=== PATIENT | female | born 1955 ===

== ENCOUNTER 2023-11-28 10:45 | Inpatient (IN) | payer OTHER ==
[~2023-11-28] VITALS: Ht 152.4 cm; Wt 51.7 kg
[2023-11-28] MEDS ORDERED: HORIZANT300 MG PO (11:24)
[2023-11-28] MEDS ORDERED: EZALLOR SPRINKL10 MG PO (11:25)
[2023-11-28] MEDS ORDERED: FOSAMAX70 MG PO (11:25)
[2023-11-28] MEDS ORDERED: SYNTHROID100 MCG PO (11:25)
[2023-11-28 12:05] VITALS: BP 115/72
[2023-12-04] MEDS ORDERED: NIFEDIPINE ER30 M1 (11:23)
[2023-12-04] MEDS ORDERED: GABAPENTIN300 M2 (11:24)
[2023-12-04] MEDS ORDERED: CICLOPIROX6.6 ML (11:24)
[2023-12-04] MEDS ORDERED: levoFLOXacin IN DEXTROSE 5 % 500MG/100ML PIGGYBAG IV ONE (13:30)
[2023-12-04] MEDS ORDERED: METRONIDAZOLE/SODIUM CHLORIDE 5 MG/ML ML IV ONE (13:45)
[2023-12-04] MEDS ORDERED: OxyCODONE HCL 5 MG TABLET (ROXICODONE) PO PRN (14:45)
[2023-12-04] MEDS ORDERED: RINGERS SOLUTION,LACTATED 1,000 ML IV SCH (14:45)
[2023-12-04] MEDS ORDERED: ONDANSETRON HCL 2 MG/ML VIAL IV PRN (14:45)
[2023-12-04] MEDS ORDERED: MORPHINE SULFATE 4 MG/ML CARTRIDGE IV PRN (14:45)
[2023-12-04] MEDS ORDERED: MORPHINE SULFATE 2 MG/ML CARTRIDGE IV ONE (15:00)
[2023-12-04] MEDS ORDERED: POLYETHYLENE GLYCOL 3350 17 GM BLIST.PACK PO SCH (17:00)
[2023-12-04] MEDS ORDERED: METOCLOPRAMIDE HCL 5 MG/ML VIAL IV SCH (17:00)
[2023-12-04] MEDS ORDERED: GABAPENTIN 300 MG CAPSULE PO SCH (17:00)
[2023-12-04] MEDS ORDERED: HYOSCYAMINE SULFATE 0.125 MG TAB.SUBL SL SCH (17:00)
[2023-12-04 18:30] LABS: HEMATOCRIT 39.1 % (36.0-45.00); HEMOGLOBIN 12.8 g/dL (12.0-15.00); MEAN CELL VOLUME 85.8 fL (80.00-100.00); MEAN CORPUSCULAR HEMOGLOBIN 28.1 pg (27.00-32.0); MEAN CORPUSCULAR HGB CONC 32.8 g/dl (32.0-36.0); PLATELET COUNT 266 K/uL (150-450); RED BLOOD COUNT 4.56 M/uL (4.00-6.00); RED CELL DISTRIBUTION WIDTH 14.5 % (11.5-14.5)
[2023-12-04 18:40] VITALS: BP 126/73; O2SAT 98
[2023-12-04 18:48] LABS: ALBUMIN 3.2 gm/dL (3.4-5.0); CALCIUM 8.1 mg/dL (8.5-10.1); CREATININE SERUM 0.67 mg/dL (0.55-1.02); GFR 87.27; MAGNESIUM 1.5 mg/dL (1.8-2.4); PHOSPHOROUS 2.2 mg/dL (2.5-4.9); POTASSIUM 3.89 mEq/L (3.5-5.1)
[2023-12-04] MEDS ORDERED: ACETAMINOPHEN 500 MG GEL..CAP PO SCH (20:00)
[2023-12-04] MEDS ORDERED: FAMOTIDINE/PF 20 MG/2 ML VIAL IV PUSH SCH (21:00)
[2023-12-05 00:34] VITALS: BP 127/69; O2SAT 99
[2023-12-05 06:45] LABS: HEMATOCRIT 35.5 % (36.0-45.00); HEMOGLOBIN 12.1 g/dL (12.0-15.00); MEAN CELL VOLUME 87.4 fL (80.00-100.00); MEAN CORPUSCULAR HEMOGLOBIN 29.8 pg (27.00-32.0); MEAN CORPUSCULAR HGB CONC 34.1 g/dl (32.0-36.0); PLATELET COUNT 237 K/uL (150-450); RED BLOOD COUNT 4.06 M/uL (4.00-6.00); RED CELL DISTRIBUTION WIDTH 14.5 % (11.5-14.5)
[2023-12-05 07:13] LABS: ALBUMIN 2.8 gm/dL (3.4-5.0); CALCIUM 7.7 mg/dL (8.5-10.1); CREATININE SERUM 0.71 mg/dL (0.55-1.02); GFR 81.62; PHOSPHOROUS 2.3 mg/dL (2.5-4.9); POTASSIUM 3.82 mEq/L (3.5-5.1)
[2023-12-05 07:16] LABS: MAGNESIUM 1.4 mg/dL (1.8-2.4)
[2023-12-05 08:00] VITALS: BP 140/80; O2SAT 98
[2023-12-05] MEDS ORDERED: LACTOBACILLUS ACIDOPHILUS 1 CAP CAP PO SCH (09:00)
[2023-12-05 16:00] VITALS: BP 128/86; O2SAT 98
[2023-12-05] MEDS ORDERED: ENOXAPARIN SODIUM 40 MG/0.4 ML SYRINGE SUBCUTANEO SCH (17:00)
[2023-12-06 00:41] VITALS: BP 125/69; O2SAT 98
[2023-12-06] MEDS ORDERED: ENOXAPARIN SODIUM 40 MG/0.4 ML SYRINGE SUBCUTANEO SCH (09:00)
[2023-12-06 10:20] VITALS: BP 143/74; O2SAT 95
[2023-12-06 16:49] VITALS: BP 120/74; O2SAT 98
[2023-12-07 00:48] VITALS: BP 119/66; O2SAT 98
[2023-12-07 08:00] VITALS: BP 117/70; O2SAT 100
[2023-12-07] MEDS ORDERED: LEVSIN/SL0.125 MG SL (09:11)
[2023-12-07] MEDS ORDERED: INTESTINEX680 M1 PO (09:11)
[2023-12-07] MEDS ORDERED: NEURONTIN300 MG PO (09:12)
== END 2023-12-07 16:51 | disposition home or self-care (01) | DRG 331 ==
LOC: O/R 12-04 05:40 → SURH 12-04 08:30
PROVIDERS: ADMIT Surgery; ATTEND Surgery
PROC: 0DBP4ZZ Excision of Rectum, Percutaneous Endoscopic Approach (ICD-10-PCS; 2023-12-04)
PROC: 07BC4ZZ Excision of Pelvis Lymphatic, Percutaneous Endoscopic Approach (ICD-10-PCS; 2023-12-04)
PROC: 0DTN4ZZ Resection of Sigmoid Colon, Percutaneous Endoscopic Approach (ICD-10-PCS; principal; 2023-12-04 08:30)
DX: C18.7 Malignant neoplasm of sigmoid colon (principal); R59.0 Localized enlarged lymph nodes